=== PATIENT | female | born 1935 | race Caucasian/White ===

== ENCOUNTER → 2021-10-06 | Outpatient (CLI) | payer MEDICARE, OTHER | LOC: RAD 07:54 | DX: R13.14 Dysphagia, pharyngoesophageal phase (principal) | CPT/HCPCS: 74230; 92611-GN ==

== ENCOUNTER 2022-03-01 14:46 | Emergency (ER) | payer MEDICARE, OTHER ==
[2022-03-01 17:58] LABS: HEMOGLOBIN 12.5 gm/dl (12.3-15.3); RED BLOOD COUNT 4.44 M/UL (4.00-5.10); WHITE BLOOD COUNT 7.7 K/UL (4.5-11.0)
== END 2022-03-01 19:26 | disposition home or self-care (01) ==
LOC: ER1 14:46
PROVIDERS: Emergency Medicine
DX: S90.32XA Contusion of left foot, initial encounter (principal); W20.8XXA Other cause of strike by thrown, projected or falling object, initial encounter
CPT/HCPCS: 73630; 80053; 85025; 85652; 86140; 99283